=== PATIENT | male | born 1970 | race Caucasian/White ===

== ENCOUNTER 2018-12-21 10:41 | Emergency (ER) | payer BC, OTHER ==
[~2018-12-21] VITALS: Ht 188 cm; Wt 96.2 kg
--- OUTSIDE RECORDS SUMMARY | 2018-12-21 10:43 | XMS REPORT | Continuity of Care Document ---
Author Author [facility] Interface Address Unknown Phone Unavailable Problems Problem Status Onset Date Classification Date Reported Comments Source Acute upper respiratory infection 12/12/2016 Diagnosis 12/12/2016 [facility] Acute sinusitis 12/12/2016 Diagnosis 12/12/2016 [facility] Acute pharyngitis 12/12/2016 Diagnosis 12/12/2016 [facility] Acute viral bronchiolitis 09/06/2016 Diagnosis 09/06/2016 [facility] Acute Viral Bronchiolitis Problem 12/12/2016 [facility] Rhinitis Problem 12/12/2016 [facility] Generalized Acute Body Pains Problem 12/12/2016 [facility] Cough Problem 12/12/2016 [facility] Diarrhea Problem 12/12/2016 [facility] Medications Medication Details Route Status Patient Instructions Ordering Provider Order Date Source Acetaminophen 300 MG / Codeine Phosphate 30 MG Oral Tablet acetaminophen 300 mg-codeine 30 mg tablet TAKE 1 OR 2 TABLETS BY MOUTH EVERY 4 TO 6 HOURS NEEDED. Active [facility] Acetaminophen 300 MG / Codeine Phosphate 60 MG Oral Tablet acetaminophen 300 mg-codeine 60 mg tablet TAKE 1 TABLET BY MOUTH EVERY 6 HOURS FOR 2 WEEKS Active [facility] Amlodipine 10 MG / Benazepril hydrochloride 20 MG Oral Capsule amlodipine 10 mg-benazepril 20 mg capsule TK 1 C PO QD Active [facility] Amoxicillin 500 MG Oral Capsule amoxicillin 500 mg capsule TAKE ONE CAPSULE BY MOUTH EVERY 8 HOURS UNTIL ALL IS TAKEN. Active [facility] Brompheniramine Maleate 0.4 MG/ML / Dextromethorphan Hydrobromide 2 MG/ML / Pseudoephedrine Hydrochloride 6 MG/ML Oral Solution [Bromfed DM] Bromfed DM 2 mg-30 mg-10 mg/5 mL syrup Take 10 mL every 6 hours by oral route as needed. Active [facility] Acetaminophen 300 MG / butalbital 50 MG / Caffeine 40 MG Oral Capsule suoiejqeqt-qobgpnvliatru-qmwvmvni 50 mg-300 mg-40 mg capsule TAKE ONE CAPSULE BY MOUTH EVERY 4 HOURS NEEDED Active [facility] tadalafil 5 MG Oral Tablet [Cialis] Cialis 5 mg tablet TAKE 1 TABLET BY MOUTH EVERY DAY Active [facility] Diclofenac Sodium 75 MG Delayed Release Oral Tablet diclofenac sodium 75 mg tablet,delayed release TAKE 1 TABLET BY MOUTH TWICE A DAY Active [facility] Fenofibrate 145 MG Oral Tablet fenofibrate nanocrystallized 145 mg tablet TAKE 1 TABLET BY MOUTH ONCE A DAY Active [facility] Acetaminophen 325 MG / Hydrocodone Bitartrate 10 MG Oral Tablet hydrocodone 10 mg-acetaminophen 325 mg tablet TK 1 T PO Q 4 H PRF BURN PAIN Active [facility] Lidocaine 0.05 MG/MG Medicated Patch lidocaine 5 % topical patch APPLY 1 PATCH ONCE A DAY Active [facility] Lisinopril 10 MG Oral Tablet lisinopril 10 mg tablet Active [facility] pregabalin 75 MG Oral Capsule [Lyrica] Lyrica 75 mg capsule TAKE 1 CAPSULE TWICE A DAY Active [facility] Medrol (Omi) 4 mg tablets in a dose pack Medrol (Omi) 4 mg tablets in a dose pack Take as directed. Active [facility] Methocarbamol 500 MG Oral Tablet methocarbamol 500 mg tablet TAKE 2 TABLETS BY MOUTH 4 TIMES A DAY NEEDED FOR MUSCLE SPASM/PAIN. Active [facility] Omeprazole 40 MG Delayed Release Oral Capsule omeprazole 40 mg capsule,delayed release TAKE 1 CAPSULE BY MOUTH DAILY ONCE A DAY ORALLY 90 DAYS Active [facility] Pentoxifylline 400 MG Extended Release Oral Tablet pentoxifylline ER 400 mg tablet,extended release TAKE 1 TABLET BY MOUTH TWICE A DAY Active [facility] Ranitidine 300 MG Oral Capsule ranitidine 300 mg capsule TAKE 1 CAPSULE BY MOUTH DAILY Active [facility] Ranitidine 300 MG Oral Tablet ranitidine 300 mg tablet TAKE 1 TABLET BY MOUTH TWICE A DAY Active [facility] Sertraline 100 MG Oral Tablet sertraline 100 mg tablet TK 1 T PO QD Active [facility] silver sulfadiazine 10 MG/ML Topical Cream silver sulfadiazine 1 % topical cream APPLY TO AFFECTED AREA TWICE A DAY FOR 14 DAYS Active [facility] Sulfamethoxazole 800 MG / Trimethoprim 160 MG Oral Tablet sulfamethoxazole 800 mg-trimethoprim 160 mg tablet TAKE 1 TABLET BY MOUTH TWICE A DAY FOR 10 DAYS Active [facility] testosterone cypionate 200 MG/ML Injectable Solution testosterone cypionate 200 mg/mL intramuscular oil INJECT 1ML INTRAMUSCULAR ONCE EVERY 2 WEEKS Active [facility] Amoxicillin 875 MG / Clavulanate 125 MG Oral Tablet [Augmentin] Augmentin 875 mg-125 mg tablet Take 1 tablet every 12 hours by oral route with meals for 7 days. Active [facility] Prednisone 20 MG Oral Tablet prednisone 20 mg tablet Take 1 tablet twice a day by oral route with meals for 3 days. Active [facility] Allergies, Adverse Reactions, Alerts Substance Category Reaction Severity Reaction type Status Date Reported Comments Source Immunizations Immunization Date Given Site Status Last Updated Comments Source Results Order Name Results Value Reference Range Date Interpretation Comments Source RESULT negative 12/12/2016 [facility] SWAB LOCATION Left and Right tonsillar pillars 12/12/2016 [facility] Influenza A negative 12/12/2016 [facility] Influenza B negative 12/12/2016 [facility] Vital Signs Vital Sign Value Date Comments Source Diastolic (mm Hg) 90 12/12/2016 [facility] Height 74 12/12/2016 [facility] Systolic (mm Hg) 132 12/12/2016 [facility] Weight 212 12/12/2016 [facility] Diastolic (mm Hg) 92 09/06/2016 [facility] Height 74 09/06/2016 [facility] Systolic (mm Hg) 138 09/06/2016 [facility] Weight 205 09/06/2016 [facility] Encounters Location Location Details Encounter Type Encounter Number Reason For Visit Attending Provider ADM Date DC Date Status Source [place] - [facility] - [id number] Mayela Mayer, [employer]: [address] [place] [address], Ph. [id number] Mayela Mayer 09/06/2016 [facility] [place] [facility] [id number] Michelle Vazquez, [employer]: [address] [place] [address], Ph. [id number] Michelle Vazquez 12/12/2016 [facility] Procedures Procedure Code Date Perfomer Comments Source
--- OUTSIDE RECORDS SUMMARY | 2018-12-21 10:43 | XMS REPORT | Encounter Summary ---
Author Organization Unknown Address [address] [place] [address] Phone [phone] Reason for Visit Medical Complaint Instructions 1. Acute viral bronchiolitis bronchitis: care instructions Bromfed DM 2 mg-30 mg-10 mg/5 mL syrup Medrol (Omi) 4 mg tablets in a dose pack Discussion Note I provided /reviewed [facility] handout Plan of Care Patient Instructions *Take all medicines exactly as prescribed. Call your doctor if you think you are having a problem with your medicine. *Get some extra rest. *Take an cvuh-pra-xzvpyyb pain medicine, such as acetaminophen (Tylenol), ibuprofen (Advil, Motrin), or naproxen (Aleve) to reduce fever and relieve body aches. Read and follow all instructions on the label. *Do not take two or more pain medicines at the same time. Many pain medicines have acetaminophen, which is Tylenol. Too much acetaminophen (Tylenol) can be harmful. *Take an lesa-fgu-seaajnk cough medicine that contains dextromethorphan to help quiet a dry, hacking cough so that you can sleep. Avoid cough medicines that have more than one active ingredient. Read and follow all instructions on the label. *Breathe moist air from a humidifier, hot shower, or sink filled with hot water. The heat and moisture will thin mucus so you can cough it out. *Do not smoke. Smoking can make bronchitis worse. If you need help quitting, talk to your doctor about stop-smoking programs and medicines. These can increase your chances of quitting for good. If no improvement in 3-5 days, or if new or worsening symptoms develop, follow up with a primary care physician. Reminders Provider Appointments None recorded. Lab None recorded. Referral None recorded. Procedures None recorded. Surgeries None recorded. Imaging None recorded. Medications Name Start Date acetaminophen 300 mg-codeine 30 mg tablet TAKE 1 OR 2 TABLETS BY MOUTH EVERY 4 TO 6 HOURS NEEDED. acetaminophen 300 mg-codeine 60 mg tablet TAKE 1 TABLET BY MOUTH EVERY 6 HOURS FOR 2 WEEKS amlodipine 10 mg-benazepril 20 mg capsule TAKE ONE CAPSULE BY MOUTH EVERY DAY amoxicillin 500 mg capsule TAKE ONE CAPSULE BY MOUTH EVERY 8 HOURS UNTIL ALL IS TAKEN. Bromfed DM 2 mg-30 mg-10 mg/5 mL syrup Take 10 mL every 4 hours by oral route as needed. ftfxbamtrb-hdvhxxlnhuerl-zgvpewoq 50 mg-300 mg-40 mg capsule TAKE ONE CAPSULE BY MOUTH EVERY 4 HOURS NEEDED Cialis 5 mg tablet TAKE 1 TABLET BY MOUTH EVERY DAY diclofenac sodium 75 mg tablet,delayed release TAKE 1 TABLET BY MOUTH TWICE A DAY fenofibrate nanocrystallized 145 mg tablet TAKE 1 TABLET BY MOUTH ONCE A DAY hydrocodone 10 mg-acetaminophen 325 mg tablet TK 1 T PO Q 4 H PRF BURN PAIN lidocaine 5 % topical patch APPLY 1 PATCH ONCE A DAY lisinopril 10 mg tablet Lyrica 75 mg capsule TAKE 1 CAPSULE TWICE A DAY Medrol (Omi) 4 mg tablets in a dose pack Take as directed. methocarbamol 500 mg tablet TAKE 2 TABLETS BY MOUTH 4 TIMES A DAY NEEDED FOR MUSCLE SPASM/PAIN. omeprazole 40 mg capsule,delayed release TAKE 1 CAPSULE BY MOUTH DAILY ONCE A DAY ORALLY 90 DAYS pentoxifylline ER 400 mg tablet,extended release TAKE 1 TABLET BY MOUTH TWICE A DAY ranitidine 300 mg capsule TAKE 1 CAPSULE BY MOUTH DAILY ranitidine 300 mg tablet TAKE 1 TABLET BY MOUTH TWICE A DAY sertraline 100 mg tablet TAKE 1 TABLET BY MOUTH DAILY ONCE A DAY ORALLY 90 DAYS silver sulfadiazine 1 % topical cream APPLY TO AFFECTED AREA TWICE A DAY FOR 14 DAYS sulfamethoxazole 800 mg-trimethoprim 160 mg tablet TAKE 1 TABLET BY MOUTH TWICE A DAY FOR 10 DAYS testosterone cypionate 200 mg/mL intramuscular oil INJECT 1ML INTRAMUSCULAR ONCE EVERY 2 WEEKS Medications Administered None recorded. Vitals Height Weight BMI Blood Pressure 6 ft 2 in 205 lbs 26.3 138/92 Lab Results None recorded. Allergies Name Reaction Severity Onset NKDA Problems Name Status Onset Date Source Acute Viral Bronchiolitis Active Encounter Rhinitis Active Encounter Generalized Acute Body Pains Active Encounter Cough Active Encounter Diarrhea Active Encounter Procedures None recorded. Vaccine List None recorded. Social History Smoking Status Never Smoker Past Encounters 09/06/2016 Acute Viral Bronchiolitis LUIS DANIEL HinkleP: [address] [place] [address], Ph. History of Present Illness Cough Reported By: Patient HPI: Location: chest. Quality: sore throat, colored phlegm, congested, hacking cough. Duration: 7 days. Severity: moderate. Onset/Timing: gradual. Context: no sick contacts, no foreign travel, non-smoker. Modifying factors: OTC medication. Associated Symptoms: no sputum production, no shortness of breath, no wheezing, no sweats, no significant weight gain, no significant weight loss, no vomiting, no diarrhea, no rash, no nausea, no muscle aches, no headache, morning cough, sore throat, fever/chills Review of Systems:ROS as noted in the HPI Review of Systems Basic Reported By: Patient Physical Exam Adult Basic, Adult Male Complete Constitutional: General Appearance: healthy-appearing, well-nourished, well-developed. Level of Distress: NAD. Ambulation: ambulating normally Psychiatric: Mental Status: active and alert. Orientation: to time, to place, to person Gxy-Avrh-Msnrq-Throat: Ears: no lesions on external ear, no outer ear tenderness, EACs clear, TMs clear, TM mobility normal. Hearing: no hearing loss. Nose: no lesions on external nose, nares patent, no septal deviation, nasal passages clear, no sinus tenderness, no nasal discharge. Lips, Teeth, and Gums: no mouth or lip ulcers, no bleeding gums, normal dentition. Oropharynx: moist mucous membranes, no erythema, no exudates, tonsils absent Lungs: Respiratory effort: no dyspnea, no tachypnea, no use of accessory muscles, no intercostal retractions; dry cough. Auscultation: breath sounds normal, good air movement Cardiovascular: Heart Auscultation: RRR, no murmurs
--- OUTSIDE RECORDS SUMMARY | 2018-12-21 10:43 | XMS REPORT | Encounter Summary ---
Author Organization Unknown Address [address] [place] [address] Phone [phone] Reason for Visit Medical Complaint Instructions 1. Acute upper respiratory infection prednisone 20 mg tablet Bromfed DM 2 mg-30 mg-10 mg/5 mL syrup rapid flu (A+B) 2. Acute sinusitis Augmentin 875 mg-125 mg tablet 3. Acute pharyngitis rapid strep group A, throat Discussion Note: None recorded. Patient educational handouts: No information available. Plan of Care Patient Instructions Ok to use otc flonase and zyrtec for symptoms. Stop dayquil/nyquil. If symptoms do not improve in 3days, call clinic or see pcp. Reminders Provider Appointments None recorded. Lab Rapid Flu (A+B) 12/12/2016 [facility] Rapid Strep Group a, Throat 12/12/2016 [facility] Referral None recorded. Procedures None recorded. Surgeries None recorded. Imaging None recorded. Medications Name Start Date amlodipine 10 mg-benazepril 20 mg capsule TK 1 C PO QD Augmentin 875 mg-125 mg tablet Take 1 tablet every 12 hours by oral route with meals for 7 days. Bromfed DM 2 mg-30 mg-10 mg/5 mL syrup Take 10 mL every 6 hours by oral route as needed. ojwtcqfwon-fxeycezsxufxb-udsjoecw 50 mg-300 mg-40 mg capsule TAKE ONE CAPSULE BY MOUTH EVERY 4 HOURS NEEDED Cialis 5 mg tablet TAKE 1 TABLET BY MOUTH EVERY DAY lisinopril 10 mg tablet omeprazole 40 mg capsule,delayed release TAKE 1 CAPSULE BY MOUTH DAILY ONCE A DAY ORALLY 90 DAYS prednisone 20 mg tablet Take 1 tablet twice a day by oral route with meals for 3 days. ranitidine 300 mg capsule TAKE 1 CAPSULE BY MOUTH DAILY sertraline 100 mg tablet TK 1 T PO QD testosterone cypionate 200 mg/mL intramuscular oil INJECT 1ML INTRAMUSCULAR ONCE EVERY 2 WEEKS Medications Administered None recorded. Vitals Height Weight BMI Blood Pressure 6 ft 2 in 212 lbs 27.2 132/90 Lab Results Date Name Specimen Result Interpretation Description Value Range Status Address Rapid Strep Group a, Throat Result negative [facility]: [address] [facility] Swab Location Left and Right tonsillar pillars [facility]: [address] [place] [address] Rapid Flu (A+B) Influenza a negative [facility]: [address] [place] [address] Influenza B negative [facility]: [address] [place] [address] Allergies Code Code System Name Reaction Severity Onset NKDA Problems Name Status Onset Date Source Acute Viral Bronchiolitis Active Encounter Rhinitis Active Encounter Generalized Acute Body Pains Active Encounter Cough Active Encounter Diarrhea Active Encounter Procedures None recorded. Vaccine List None recorded. Social History Smoking Status Never Smoker Past Encounters 12/12/2016 Acute Upper Respiratory Infection; Acute Sinusitis; Acute Pharyngitis Michelle Vazquez, [facility]: [address] [facility] , [place] [address], Ph. History of Present Illness Cough Reported By: Patient HPI: Location: chest, nasal/sinus. Quality: productive cough, sore throat, colored phlegm, congested. Duration: 4 days. Severity: moderate. Onset/Timing: sudden. Context: no foreign travel, non-smoker, sick contact. Modifying factors: OTC medication. Associated Symptoms: no shortness of breath, no wheezing, no sweats, no significant weight gain, no significant weight loss, no morning cough, no sore throat, no vomiting, no diarrhea, no rash, no nausea, no fever/chills, no muscle aches, no headache, yellow-green, thick sputum Review of Systems Basic Reported By: Patient Constitutional: Constitutional: no fever Eyes: Eyes: no eye complaints Lxgf-Hbql-Cqvrc-Throat: Ears: no ear complaints. Nose: nose/sinus problems. Mouth/Throat: no bleeding gums, no mouth complaints, no teeth problems, sore throat Cardiovascular: Cardiovascular: no chest pain, no shortness of breath, no known heart murmur Respiratory: Respiratory: no wheezing, no shortness of breath, cough Gastrointestinal: Gastrointestinal: no abdominal pain, no vomiting / diarrhea Genitourinary: Genitourinary: no urinary complaints, no discharge Musculoskeletal: Musculoskeletal: no muscle aches, no muscle weakness, no arthralgias/joint pain, no back pain Skin: Skin: no abnormal / changing mole, no jaundice, no rashes Neurologic: Neurologic: no loss of consciousness, no weakness, no numbness, no seizures, no dizziness, no headaches Physical Exam Adult Basic, 14-21 Yr Male, Adult Male Complete Reported By: Patient Constitutional: General Appearance: well-nourished, well-developed. Level of Distress: NAD Psychiatric: Mental Status: active and alert, normal affect, normal mood. Orientation: to time, to place, to person Eyes: Lids and Conjunctivae: non-injected, no discharge. Pupils: equal size, round, reactive to light. Sclerae: non-icteric Dvo-Uiga-Khnre-Throat: Ears: no lesions on external ear, no outer ear tenderness, EACs clear, TMs clear, middle ear fluid. Nose: no lesions on external nose, nares patent, no septal deviation, nasal passages clear, sinus tenderness, nasal discharge--purulent, post nasal drip. Lips, Teeth, and Gums: no mouth or lip ulcers, no bleeding gums, normal dentition. Oropharynx: moist mucous membranes, no exudates, tonsils not enlarged, erythema Neck: Lymph Nodes: cervical lympadenopathy. Thyroid: no enlargement, non-tender, no nodules, no asymmetry Lungs: Respiratory effort: no tachypnea. Auscultation: no wheezing, no rales/crackles, no retractions, rhonchi Cardiovascular: Heart Auscultation: no murmurs, no gallops, no rub. Apical impulse: not displaced. Rate and rhythm: regular
[2018-12-21] MEDS ORDERED: KETOROLAC TROMETHAMINE 30 MG/ML VIAL IV STA (11:10)
--- NOTE | 2018-12-21 12:16 | Diagnostic Imaging Report ---
EXAM: RIBS UNILAT W/CXR- [facility] DATE: 12/21/2018 12:00 AM INDICATION:Fall from 10 foot ladder COMPARISON: None FINDINGS: PA chest: Heart size normal. No pleural effusion or pneumothorax. There is pleural thickening or loculated fluid adjacent to the lateral aspects of the left fourth and fifth ribs. There is a 0.7 cm opacity in the periphery of the right midlung. Left ribs: There is a minimally displaced fracture of the posterolateral left fourth rib. IMPRESSION: 1. Minimally displaced acute fracture of the posterior lateral left fourth rib. Adjacent pleural thickening likely represents loculated pleural hematoma. 2. No pneumothorax or free pleural effusion. 3. There is a 0.7 cm peripheral nodule in the right midlung. This is not definitively calcified. If the patient has had a previous chest x-ray, comparison may be helpful. Alternatively, this may be fully characterized with noncontrast chest CT. Signed by: Dr. Martell Cortez M.D. on 12/21/2018 12:12 PM
[2018-12-21] MEDS ORDERED: NAPROSYN500 MG PO (12:21)
[2018-12-21] MEDS ORDERED: ULTRAM50 MG PO (12:21)
--- NOTE | 2018-12-21 12:24 | Diagnostic Imaging Report ---
EXAM: WRIST 3VW RT - [facility] DATE: 12/21/2018 12:00 AM INDICATION:Fall from 10 foot ladder COMPARISON: None FINDINGS: 2 views of the right wrist show a bony density dorsal to the wrist in a location compatible with triquetrum fracture. There is overlying soft tissue swelling. The carpal navicular is not well profiled on these views. No other displaced fracture or dislocation is identified. IMPRESSION: 1. Bony density dorsal to the wrist compatible with fracture of the triquetrum. 2. On these views the carpal navicular is not fully profiled. Consider evaluation with CT of the wrist to fully characterize the injury. Signed by: Dr. Martell Cortez M.D. on 12/21/2018 12:20 PM
[2018-12-21] MEDS ORDERED: COLACE100 MG PO (12:25)
[2018-12-21 13:09] VITALS: BP 158/90
== END 2018-12-21 12:50 | disposition home or self-care (01) ==
LOC: FSED 10:41
DX: S62.111A Displaced fracture of triquetrum [cuneiform] bone, right wrist, initial encounter for closed fracture (principal); S22.32XA Fracture of one rib, left side, initial encounter for closed fracture; W11.XXXA Fall on and from ladder, initial encounter; Y92.008 Other place in unspecified non-institutional (private) residence as the place of occurrence of the external cause; I10 Essential (primary) hypertension; F17.210 Nicotine dependence, cigarettes, uncomplicated
CPT/HCPCS: 29125; 71101; 73110; 80053; 84484; 85025; 99284; J1885